=== PATIENT | male | born 1940 | race Caucasian/White ===

== ENCOUNTER → 2016-07-12 | Outpatient (CLI) | payer MEDICARE ==
[~2016-07-12] MED LIST: ASPIR 8181 MG PO; CALCIUM 600 +1 EACH PO; CEROVITE ADVANC1 TAB PO; CIALIS20 MG PO; COUMADIN1 MG PO; COUMADIN5 MG PO; K-TAB ER10 MEQ PO; KLOR-CON M1010 MEQ PO; LASIX40 MG PO; MIRAPEX0.5 MG PO; PROTONIX40 M1 PO; SINEMET CR 50-21 TAB PO; TOPROL XL50 MG PO; TRIAMCINOLONE A15 GM TOP; VITAMIN D31000 UNIT PO
== END | disposition short-term general hospital (02) ==
LOC: CLONCO 09:31
DX: D69.6 Thrombocytopenia, unspecified (principal); G20 Parkinson's disease; I48.91 Unspecified atrial fibrillation; I10 Essential (primary) hypertension

== ENCOUNTER 2016-09-16 04:12 | Emergency (ER) | payer MEDICARE ==
[~2016-09-16] VITALS: Ht 182.9 cm; Wt 113.3 kg
== END 2016-09-16 07:02 | disposition short-term general hospital (02) ==
LOC: ER 04:12
DX: L76.22 Postprocedural hemorrhage of skin and subcutaneous tissue following other procedure (principal); I48.91 Unspecified atrial fibrillation; I10 Essential (primary) hypertension; M81.0 Age-related osteoporosis without current pathological fracture; E66.9 Obesity, unspecified; K21.9 Gastro-esophageal reflux disease without esophagitis; G20 Parkinson's disease; Z88.1 Allergy status to other antibiotic agents; Z88.8 Allergy status to other drugs, medicaments and biological substances; Z79.82 Long term (current) use of aspirin; Z79.01 Long term (current) use of anticoagulants; Z79.899 Other long term (current) drug therapy